=== PATIENT | male | born 1975 | race Caucasian/White ===

== ENCOUNTER 2019-08-18 06:27 | Day surgery (SDC) | payer BC ==
[~2019-08-18] VITALS: Ht 180.3 cm; Wt 113.4 kg
[~2019-08-18 06:27] MED LIST: ALLEGRA ALLERG180 MG PO; NEXIUM20 MG PO; SINGULAIR 10 MG10 M1 PO
[2019-08-18] MEDS ORDERED: NORCO 5-325 TA1 EAC1 PO (08:42)
[2019-08-18 08:49] VITALS: BP 131/81
[2019-08-18 11:41] VITALS: BP 117/72
--- NOTE | 2019-08-18 12:56 | O ---
[facility] [place] [address] OPERATIVE REPORT Name: ELIZABETH REYNAGA Room #: 438-P [facility]#: [id number] Admission: 08/18/19 Attend Phys: Jack Whitlock MD Discharge: Date of : 79 Report #: [id number] THIS REPORT FOR: cc: DORENE SCOTT - Family physician unknown Jack Whitlock MD ~ CC: Leobardo EATON unknown DORENE Whitlock DATE OF SERVICE: 08/18/2019 PATIENT OF: Dr. Jack Whitlock, Dr. Leobardo Reid, Dr. Phoenix Lew. PREOPERATIVE DIAGNOSES: Cholelithiasis, cholecystitis, biliary colic. POSTOPERATIVE DIAGNOSES: Cholelithiasis, cholecystitis, biliary colic. PROCEDURE: Laparoscopic cholecystectomy and repair of an umbilical hernia. SURGEON: Jack Whitlock MD BOOT AND SADDLE REPAIR PERSON: Gela Loja RN. ANESTHESIA: General. DESCRIPTION OF PROCEDURE: The patient was brought to the operating room and placed on operative table in the supine position. Sequential compression devices were in place for DVT prophylaxis. He received an appropriate preoperative dose of antibiotics. The patient underwent a general endotracheal anesthesia and the abdomen was then prepped and draped in a sterile fashion. Skin and subcutaneous tissue around the umbilicus was then infiltrated using 0.5% Marcaine. Infraumbilical transverse skin incision was performed using a #11 scalpel blade. Hemostasis obtained using electrocautery. Dissection was carried down through subcutaneous tissue, the fascia, which was then dissected free and umbilical hernia was identified with some incarcerated preperitoneal fat and this was dissected free from the umbilicus. Peritoneum was entered and a pursestring suture of 0 Vicryl was then placed in the fascia. A 12 mm disposable Virgen port was then inserted through the opening and held into place with the balloon port and the pursestring suture. Pneumoperitoneum was obtained to a level of 10-15 mmHg. Laparoscope was inserted through this port and exploration was performed, which revealed a thickened, dilated gallbladder with some adhesions around it. There were no other intraabdominal abnormalities. Two lateral 5 mm Surgiport as well as an upper midline 12-mm Surgiport were all [address] [address] OPERATIVE REPORT Name: ELIZABETH REYNAGA [place] Room #: 438-P [facility]#: [id number] Admission: 08/18/19 Attend Phys: Jack Whitlock MD Discharge: Date of : 79 Report #: [id number] inserted under direct visualization after infiltration with 0.5% Marcaine. Gallbladder was then grasped and retracted superiorly and adhesions around the gallbladder were carefully dissected free using the [place] dissector and the electrocautery. Cystic duct and artery were carefully dissected free. I examined cystic duct and cystic artery and the cystic common bile duct junction, were all clearly identified and examined on both the medial and lateral sides. I then doubly clipped the cystic artery on each side and divided with the scissors. The cystic duct was then triply clipped on the common bile duct side and doubly clipped on the gallbladder side and divided with the scissors. The gallbladder was then dissected free from the bed using the hook electrocautery. Prior to completing the dissection, the gallbladder was retracted superiorly and the bed inspected for hemostasis, which was obtained using electrocautery. The gallbladder was then transected and brought out through the upper midline port and sent as specimen to pathology. Port was then returned to the abdomen. The area was then copiously irrigated with warm saline solution, which was suctioned free and hemostasis was checked and found to be intact. The ports were then all removed under direct visualization, hemostasis intact at each port site. Pneumoperitoneum was released and the periumbilical port was then also removed under direct visualization, hemostasis intact at that port site as well. The umbilical hernia was then repaired using the 0 Vicryl pursestring suture. The fascia in the upper midline was then closed using a [id number] 0 Vicryl suture. The skin was then closed using interrupted vertical mattress 5-0 nylon sutures. The wound was dressed with Band-Aids. The patient was then awakened from the general endotracheal anesthesia, extubated, and taken to recovery room in good condition. Estimated blood loss was approximately 10 mL and the patient tolerated procedure well. All sponge, lap and instrument counts correct x 2. <ELECTRONICALLY SIGNED> By: Jack Whitlock MD 08/18/19 [id number] [id number] Jack Whitlock MD /nt
[2019-08-18 15:45] VITALS: BP 112/70
[2019-08-18 19:32] VITALS: BP 110/72
[2019-08-19 00:28] VITALS: BP 122/67
--- NOTE | 2019-08-19 02:00 | NUR ---
ALERT AND ORIENRTED. PT UP WALKING IN THE HALLWAYS SEVERAL TIMES. HE HAS BEEN UP AD LUIZ. PAIN FAIRLY CONTROLLED BY THE MORPHINE IVP AND NORCO.AFEBRILE. EATING WITH NO DISCOMFORT. VOIDING OKAY. PROGRESSING TOWARDS CARE GOALS.
[2019-08-19 07:35] VITALS: BP 112/66
--- NOTE | 2019-08-19 13:57 | NUR ---
PT ADMITTED RELATED TO [facility] AN. CM REVIEWED CHART AND SPOKE WITH CARE TEAM. CM MET WITH PT AT BEDSIDE THIS DAY. PT IS A&O X4. CM ROLE INTRODCUED PT INDICATED HE LIVES IN A HOUSE WITH HIS AND CHILDREN. PT INDICATED THERE ARE NUMEROUS STEPS TO ENTER AND INSIDE HOME. 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 PT INDICATED HE HAD CPAP FOR HOME USE. PT INIDCATED HE PLANS TO RETURN HOME ONCE MEDICALLY STABLE. ANTICIAPTE NO NEEDS UPON DC.
[2019-08-19 14:34] VITALS: BP 112/66
--- NOTE | 2019-08-19 15:48 | NUR ---
Assumed care of pt at 0700. Pt a&ox4. Pain controlled with prn pain meds. Pt requests PPI, stool softener, and ibuprofen. Provider notified. New orders noted. Pt able to ambulate in the espinoza. States he is ready to go gome. Pt discharged to home with pain med prescription.
--- NOTE | 2019-08-19 16:07 | PATH ---
[facility] [address] [place] [address] PATHOLOGY RPT PROCEDURE Name: ELIZABETH REYNAGA Room #: 438-P [facility]..#: [id number] Admission: 08/18/19 Date of : 79 Discharge: Report #: [id number] Path Case #: [id number] [facility] Accession Number: [id number] . 01 Material submitted: . gallbladder - GALLBLADDER AND CONTENTS . 01 Clinical history: . Calculus of gallbladder with chronic cholecystitis without obstruction . 02 Diagnosis: Gallbladder, cholecystectomy: - Mild chronic cholecystitis. - Cholelithiasis. - Cholesterolosis. (IUV/db; 08/19/2019) LBQ 08/19/2019 135 Local . 02 Electronically signed: . Dayana Storey MD, Pathologist NPI- [id number] . 01 Gross description: . The specimen is received in formalin, labeled "Elizabeth Reynaga, gallbladder and contents". Received is a previously opened gallbladder measuring 9.4 x 2.8 x 1.2 cm in greatest dimensions displaying a pink-jordan to pink-liriano serosal surface. Opening the specimen reveals a velvety, bile-stained mucosa with mild, diffuse cholesterolosis, and with a gallbladder wall thickness of 0.1 cm. A single black, nodular calculus is present, and no masses or lesions are noted grossly. Underwriting Manager sections, to include the proximal margin, are submitted in cassette A1. (CAA; 08/18/2019) QAC/QA 08/19/2019 1350 Local . 02 Pathologist provided ICD-10: K80.10, K82.4 . 02 CPT . 173839 Specimen Comment: A courtesy copy of this report has been sent to [phone], [phone] Specimen Comment: [phone] Specimen Comment: Report sent to / DR SCOTT Performed at: [address] [id number] MD Shamar Awad MD Phone: [phone] Performed at: 02 [place] [address] PATHOLOGY RPT PROCEDURE Name: ELIZABETH REYNAGA Room #: 438-P [facility] M.R.#: [id number] Admission: 08/18/19 Date of : 79 Discharge: Report #: [id number] Path Case #: [id number] [facility] [address], [place], [place] [id number] MD Dayana Storey MD Phone: [phone]
== END 2019-08-19 16:32 | disposition home or self-care (01) ==
LOC: OR 06:27 → TBA 06:28 → OR 09:07 → 4S 11:51 → OR 12:56 → ENTRNSPT 08-19 15:44 → EDTRNSPTSTS 08-19 15:49 → OR 08-19 16:32
DX: K80.64 Calculus of gallbladder and bile duct with chronic cholecystitis without obstruction (principal); K42.9 Umbilical hernia without obstruction or gangrene; J45.909 Unspecified asthma, uncomplicated; K21.9 Gastro-esophageal reflux disease without esophagitis; E78.00 Pure hypercholesterolemia, unspecified; G47.30 Sleep apnea, unspecified; Z98.890 Other specified postprocedural states; Z79.899 Other long term (current) drug therapy; Z88.8 Allergy status to other drugs, medicaments and biological substances
CPT/HCPCS: 10102; 50010; 50101; 50411; 50555; 50558; 51474; 51489; 52266; 53314; 56462; 56524; 56528; 70005